=== PATIENT | male | born 1975 | race Caucasian/White ===

== ENCOUNTER 2017-06-22 21:14 | Emergency (ER) | payer BC ==
[~2017-06-22] VITALS: Ht 180.3 cm; Wt 102.3 kg
[~2017-06-22 21:14] MED LIST: FLEXERIL5 MG PO; LORTAB 5/500 501 TAB PO; MOTRIN 800800 MG/TAB PO; NO HOME MEDICATIONS; NORCO PO
[2017-06-22 21:17] VITALS: TEMP 99.1
[2017-06-22 21:46] LABS: COLLECTION METHOD CLEAN CATCH
[2017-06-22 21:53] LABS: BASO # 0.1 (0.0-0.2); BASO % 0.4 % (0.0-2.0); EOS # 0.1 (0.0-0.7); EOS % 0.5 % (0-4.0); GRAN # 10.6 (1.4-6.5); GRAN % 82.7 % (42.2-75.2); HEMATOCRIT 46.8 % (42.0-52.0); HEMOGLOBIN 16.2 g/dl (13.5-18.0); LYMPH # 1.2 (1.2-3.4); LYMPH % 9.1 % (20.0-51.0); MEAN CELL VOLUME 90 fl (80.0-100.0); MEAN CORPUSCULAR HEMOGLOBIN 31 pg (27.0-31.0); MEAN CORPUSCULAR HGB CONC 35 g/dl (33.0-37.0); MONO # 0.9 (0.1-0.6); MONO % 6.8 % (1.7-9.3); PLATELET COUNT 357 K/mm3 (130-400); RED BLOOD COUNT 5.21 M/mm3 (4.20-5.60); REDCELL DISTRIBUTION WIDTH-CV 12.8 % (11.5-14.5)
[2017-06-22] MEDS ORDERED: PROTONIX 40MG T40 MG PO (22:00)
[2017-06-22 22:01] LABS: ALBUMIN 4.7 gm/dL (3.5-5.0); BILIRUBIN,TOTAL 0.6 mg/dL (0.0-1.0); CALCIUM 9.4 mg/dL (8.4-10.2); CREATININE, serum 0.92 mg/dL (0.66-1.25); POTASSIUM 4.2 mmol/L (3.4-5.0); TOTAL PROTEIN 8.3 gm/dL (6.4-8.2)
[2017-06-22] MEDS ORDERED: PROZAC 20MG20 MG PO (22:02)
[2017-06-22] MEDS ORDERED: VYVANSE20 MG PO (22:02)
[2017-06-22 22:06] LABS: MUCOUS Present /lpf; PH 5 (5-8); SQUAMOUS EPITHELIAL None Seen /hpf; URINE APPEARANCE Clear; URINE BACTERIA None Seen /hpf; URINE BILIRUBIN Negative (NEGATIVE); URINE BLOOD Negative (NEGATIVE); URINE COLOR Yellow; URINE GLUCOSE Negative (NEGATIVE); URINE KETONE Negative (NEGATIVE); URINE LEUKOCYTE ESTERASE Negative (NEGATIVE); URINE NITRATE Negative (NEGATIVE); URINE PROTEIN(semi-quant) Negative (NEGATIVE); URINE RBC 0-2 /hpf; URINE UROBILINOGEN Negative (NEGATIVE)
[2017-06-22 23:00] VITALS: BP 121/78; PULSE 85
[2017-06-22] MEDS ORDERED: ZOFRAN 4MG T4 MG/TAB PO (23:41)
[2017-06-22] MEDS ORDERED: VALIUM 5MG T5 MG/TAB PO (23:41)
== END 2017-06-23 00:30 | disposition home or self-care (01) ==
LOC: COL.ER 21:14
PROVIDERS: Emergency Medicine
DX: R10.9 Unspecified abdominal pain (principal); R42 Dizziness and giddiness; R55 Syncope and collapse; I95.9 Hypotension, unspecified
CPT/HCPCS: J1885; J2270; J2405; J7030; Q9967

== ENCOUNTER → 2020-03-20 | Outpatient (CLI) | payer BC ==
[~2020-03-20] MED LIST changes: +PROTONIX 40MG T40 MG PO; +PROZAC 20MG20 MG PO; +VALIUM 5MG T5 MG/TAB PO; +VYVANSE20 MG PO; +ZOFRAN 4MG T4 MG/TAB PO
== END ==
LOC: COL.RAD 13:10
DX: R31.0 Gross hematuria (principal)